=== PATIENT | male | born 1955 | race Two or more races ===

== ENCOUNTER 2020-05-03 05:11 | Day surgery (SDC) | payer MEDICARE ==
--- NOTE | 2020-05-02 14:29 | Pre-op HX & Phy Repo 2 SIG ---
DATE OF ADMISSION: 05/03/2020 DATE OF SURGERY: 05/03/2020. PREOPERATIVE DIAGNOSIS: Retinal detachment, right eye. BRIEF NOTE: This is first [facility] admission for the patient who is a very nice 64-year-old gentleman who was found to have superior retinal detachment in the right eye. His vision had progressively blurred for a couple of weeks and on examination was found to have macula off detachment. PAST MEDICAL HISTORY: Remarkable for elevated cholesterol and blood pressure. He is maintained on atorvastatin, lisinopril, and allopurinol. OCULAR HISTORY: Remarkable for cataract surgery done in either eye in 2018 followed by capsulotomies. ALLERGIES: He has no known allergies. PHYSICAL EXAMINATION: Best vision was 22/100 in the right eye and 20/25 in the left. Confrontation schulz showed inferior field loss on the right eye with extension through the macular center. The anterior segment showed posterior chamber lenses in reasonable position with open capsulotomies. Fundus examination showed bullous retinal detachment in the right eye extending from the 9 o'clock position to the 2:30 position. The bullous detachment extended down through the macula. The macula was . What appeared to be two small horseshoe tears were seen within the folds of retina superiorly. The left fundus was benign. General physical examination will be done by Dr. Kaufman. ASSESSMENT: Bullous retinal detachment, right eye. PLAN: The plan is to perform a pars plana vitrectomy with endo drainage, endolaser, and gas fluid exchange on the right eye. The risks and benefits of surgery have been gone over with the patient including the potential for infection, recurrent detachment, PVR formation, hemorrhage, and remote possibility of loss of the eye. The risk of anesthesia was discussed. The patient understands and consents to the surgery, which will be performed tomorrow morning. Satnam Lucero M.D. DR: Nydia JOB#: [id number] CC:
[~2020-05-03] VITALS: Ht 170.2 cm; Wt 81.6 kg
[2020-05-03] VITALS (11 sets, daily range): BP systolic 101–160; BP diastolic 45–94
[~2020-05-03 05:11] MED LIST: ALLOPURINOL100 M1 ORAL; ASPIRIN81 MG ORAL; ATORVASTATIN CA80 MG ORAL; FOLIC ACID1 MG ORAL; LISINOPRIL10 MG ORAL; Vit B12 PO
[2020-05-03] MEDS: Phenylephrine 2.5% Op 2ml Soln RIGHT EYE SCH ×3 (05:37→05:58)
[2020-05-03] MEDS: Flurbiprofen 0.03% Opth Sol 2.5ml RIGHT EYE SCH ×3 (05:37→05:58)
[2020-05-03] MEDS: Vigamox Opth Soln 3ml RIGHT EYE SCH ×3 (05:38→05:58)
[2020-05-03] MEDS ORDERED: prednisoLONE acetate 1% Opth Susp 1ml RIGHT EYE ONE (06:00)
[2020-05-03 06:05] LABS: BASOPHILS % (AUTO) 1.6 % (0.0-2.0); EOSINOPHILS % (AUTO) 4.9 % (0.0-3.0); HEMATOCRIT 39.2 % (42.0-52.0); HEMOGLOBIN 12.9 G/DL (14.2-18.0); MEAN CORPUSCULAR VOLUME 95 FL (80-99); MONOCYTES % (AUTO) 7.5 % (1.0-10.0); PLATELET COUNT 210 K/UL (150-450); RED BLOOD COUNT 4.11 M/UL (4.70-6.10); RED CELL DISTRIBUTION WIDTH 12.9 % (11.6-14.8); WHITE BLOOD COUNT 9.3 K/UL (4.8-10.8)
[2020-05-03 06:28] LABS: ANION GAP 7 mmol/L (5-15); BLOOD UREA NITROGEN 6 mg/dL (7-18); CALCIUM 8.9 MG/DL (8.5-10.1); CARBON DIOXIDE 31 MMOL/L (21-32); CHLORIDE 105 MMOL/L (98-107); CREATININE 0.8 MG/DL (0.55-1.30); POTASSIUM 3.2 MMOL/L (3.5-5.1); SODIUM 143 MMOL/L (136-145)
[2020-05-03] MEDS: Cyclopentolate 2% Opth Sol RIGHT EYE SCH ×3 (06:58→07:07)
[2020-05-03] MEDS ORDERED: Midazolam 2mg/2ml Inj ONE (07:06)
[2020-05-03] MEDS ORDERED: fentaNYL 100 mcg/2 mL IV ONE ×2 (07:06→08:02)
[2020-05-03] MEDS ORDERED: Lidocaine 1% MPF 10mg/ml 5ml ONE (07:10)
[2020-05-03] MEDS ORDERED: Kenalog-10 5ml Inj ONE (07:13)
[2020-05-03] MEDS ORDERED: EPINEPHrine 1mg/1ml Amp ONE (07:13)
[2020-05-03] MEDS ORDERED: prednisoLONE acetate 1% Opth Susp 1ml ONE (07:13)
[2020-05-03] MEDS ORDERED: Kenalog-40 1ml Vial ONE (07:13)
[2020-05-03] MEDS ORDERED: Lidocaine 2% MPF 5ml Vial INJ ONE (07:13)
[2020-05-03] MEDS ORDERED: BSS 15ml BTL ONE (07:14)
[2020-05-03] MEDS ORDERED: Povidone-Iodine 5% opth solution ONE (07:14)
[2020-05-03] MEDS ORDERED: Maxitrol Opth Oint 3.5gm ONE (07:14)
[2020-05-03] MEDS ORDERED: Tetracaine 0.5% Opth 4ml Soln ONE (07:14)
[2020-05-03] MEDS ORDERED: Triamcinolone 40mg/ml PF Vial ONE (07:14)
[2020-05-03] MEDS ORDERED: BSS 500ml btl ONE (07:14)
[2020-05-03] MEDS ORDERED: Bupivacaine 0.75% 30ml vial INJ ONE (07:14)
[2020-05-03] MEDS ORDERED: Sodium Hyaluronate 10 mg/ml 0.85ml ONE (07:15)
[2020-05-03] MEDS ORDERED: NS Irrig 1000ml ONE (07:30)
[2020-05-03] MEDS ORDERED: Sterile Water Irrig 1000ml IRRIG ONE (07:30)
[2020-05-03] MEDS ORDERED: LR 1000ml ONE (07:30)
[2020-05-03] MEDS ORDERED: Indocyanine Green 25mg Inj INJ ONE (07:30)
[2020-05-03] MEDS ORDERED: Metoclopramide 10mg/2ml Inj ONE (07:30)
[2020-05-03] MEDS ORDERED: Succinylcholine 20mg/ml 10ml vial ONE (07:38)
[2020-05-03] MEDS ORDERED: fentaNYL 100 mcg/2 mL IV PRN (07:45)
[2020-05-03] MEDS ORDERED: HYDROcodone/Acetamin 5/325 tab ORAL PRN (07:45)
--- NOTE | 2020-05-03 07:45 | Pre-Procedure Note/Attestation ---
Pre-Procedure Note/Attestation Complete Prior to Procedure Planned Procedure: right Procedure Narrative: PPV, endodrainage, endolaser, gas fluid exchange, possible scleral buckle RIGHT eye Indications for Procedure Pre-Operative Diagnosis: Retinal detachment, macula-off, right eye Attestation I attest that I discussed the nature of the procedure; its benefits; risks and complications; and alternatives (and the risks and benefits of such alternatives), prior to the procedure, with the patient (or the patient's legal tax representative). I attest that, if there was a reasonable possibility of needing a blood transfusion, the patient (or the patient's legal tax representative) was given the [place] [employer] standardized written summary, pursuant to the [place] Blood Safety Act ([place] Health and Safety Code # 1645, as amended). I attest that I re-evaluated the patient just prior to the surgery and that there has been no change in the patient's H&P, except as documented below: Satnam Lucero MD May 03, 2020 07:45
[2020-05-03] MEDS ORDERED: Phenylephrine 10mg/ml Vial ONE (08:10)
--- NOTE | 2020-05-03 08:43 | Anethesia Preoperative Eval ---
Anesthesia Pre-op PMH/ROS General Date of Evaluation: May 03, 2020 Time of Evaluation: 07:30 Anesthesiologist: gricel ASA Score: ASA 3 Mallampati Score Class I : Soft palate, uvula, fauces, pillars visible Class II: Soft palate, uvula, fauces visible Class III: Soft palate, base of uvula visible Class IV: Only hard plate visible Mallampati Classification: Class III Surgeon: antonio Diagnosis: Retinal Detachement Surgical Procedure: Right eye Pars Plana Vitrectomy Anesthesia History: none Social History: smoking Family History: no anesthesia problems Allergies: Coded Allergies: No Known Allergies (Unverified , 04/28/20) Medications: see eMAR Patient NPO?: Yes NPO Date: May 03, 2020 NPO Time: 00:01 Past Medical History Cardiovascular: Reports: HTN, CAD Pulmonary: Reports: COPD; Denies: asthma, JESIKA, other Neurologic/Psychiatric: Reports: CVA; Denies: depression/anxiety, TIA, other Endocrine: Denies: DM, hypothyroidism, steroids, other HEENT: Denies: cataract (L), cataract (R), glaucoma, [place] (L), [place] (R), other Hematology/Immune: Denies: anemia, DVT, bleeding disorder, other Musculoskeletal/Integumentary: Reports: other - gout; Denies: OA, RA, DJD, DDD, edema PSxH Narrative: cataract surgery Anesthesia Pre-op Phys. Exam Physician Exam Last Vital Signs Date Time Temp Pulse Resp B/P (MAP) Pulse Ox O2 Delivery O2 Flow Rate FiO2 05/03/20 05:44 97.7 97 18 133/80 98 Room Air Constitutional: NAD Neurologic: CN 2-12 intact Cardiovascular: RRR Respiratory: CTA Gastrointestinal: S/NT/ND Airway Exam Mallampati Classification 3 Mallampati Score: Class III MO: limited Neck: thick ROM: full Teeth: missing Dentures: no upper, no lower Anesthesia Pre-op A/P Labs Hematology Test 05/03/20 05:35 White Blood Count 9.3 K/UL (4.8-10.8) Red Blood Count 4.11 M/UL (4.70-6.10) L Hemoglobin 12.9 G/DL (14.2-18.0) L Hematocrit 39.2 % (42.0-52.0) L Mean Corpuscular Volume 95 FL (80-99) Mean Corpuscular Hemoglobin 31.5 PG (27.0-31.0) H Mean Corpuscular Hemoglobin Concent 33.0 G/DL (32.0-36.0) Red Cell Distribution Width 12.9 % (11.6-14.8) Platelet Count 210 K/UL (150-450) Mean Platelet Volume 7.9 FL (6.5-10.1) Neutrophils (%) (Auto) 73.0 % (45.0-75.0) Lymphocytes (%) (Auto) 13.0 % (20.0-45.0) L Monocytes (%) (Auto) 7.5 % (1.0-10.0) Eosinophils (%) (Auto) 4.9 % (0.0-3.0) H Basophils (%) (Auto) 1.6 % (0.0-2.0) Coagulation Test 05/03/20 05:35 Prothrombin Time 10.7 SEC (9.30-11.50) Prothromb Time International Ratio 1.0 (0.9-1.1) Activated Partial Thromboplast Time 27 SEC (23-33) Chemistry Test 05/03/20 05:35 Sodium Level 143 MMOL/L (136-145) Potassium Level 3.2 MMOL/L (3.5-5.1) L Chloride Level 105 MMOL/L (98-107) Carbon Dioxide Level 31 MMOL/L (21-32) Anion Gap 7 mmol/L (5-15) Blood Urea Nitrogen 6 mg/dL (7-18) L Creatinine 0.8 MG/DL (0.55-1.30) Estimat Glomerular Filtration Rate > 60 mL/min (>60) Glucose Level 95 MG/DL (74-106) Calcium Level 8.9 MG/DL (8.5-10.1) Studies Pre-op Studies: EKG - sr Risk Assessment & Plan Assessment: covid neg Plan: GA Status Change Before Surgery: No Pre-Antibiotics Drug: none Yolie De La Rosa CRNA May 03, 2020 08:43
--- NOTE | 2020-05-03 09:06 | Immediate Post-Op Evaluation ---
Immediate Post-Op Evalulation Immediate Post-Op Evalulation Procedure: right eye pars planta vitrectomy Date of Evaluation: May 03, 2020 Time of Evaluation: 09:05 IV Fluids: 750 Blood Pressure Systolic: 150 Blood Pressure Diastolic: 90 Pulse Rate: 97 Respiratory Rate: 14 O2 Sat by Pulse Oximetry: 99 Temperature (Fahrenheit): 97.3 Nausea: No Vomiting: No Complications none Patient Status: awake, reacts, patent Hydration Status: adequate Drug: none TwanriYolie landeros CRNA May 03, 2020 09:06
--- NOTE | 2020-05-03 09:11 | Brief Operative Note ---
Immediate Post Operative Note Operative Note Chief Complaint: Shadow in vision Right eye Pre-op Diagnosis: Retinal detachment, macula-off, right eye Procedure: PPV, Endodrainage, Endolaser 1065 spots, Gas-Fluid exchange SF-6 Right eye Post-op Diagnosis: same as pre-op Surgeon: Nic Anesthesiologist: Yolie Lao CRNA Anesthesia: general Specimen: none Complications: none Condition: stable Fluids: Per Anesthesia Estimated Blood Loss: none Drains: none Implant(s) used?: No Satnam Lucero MD May 03, 2020 09:11
[2020-05-03] MEDS ORDERED: Labetalol 5mg/ml 20ml vial IV PRN (09:15)
--- NOTE | 2020-05-03 09:44 | Operative Note - Dictated ---
DATE OF OPERATION: 05/03/2020 PREOPERATIVE DIAGNOSIS: Bullous retinal detachment, right eye. POSTOPERATIVE DIAGNOSIS: Bullous retinal detachment, right eye. PROCEDURES: 1. Pars plana vitrectomy. 2. Endo drainage. 3. Endolaser. 4. Gas fluid exchange, right eye. SURGEON: Satnam Lucero MD ORGAN PIPE FINISHER: None. ANESTHESIA: LMA general. ANESTHESIOLOGIST: Yolie De La Rosa CRNA. JUSTIFICATION FOR SURGERY: This 64-year-old gentleman noted a progressive shadow in the vision in his right eye and was found to have a superior detachment. BRIEF NOTE: Patient was brought to the operative room, placed on OR table in supine position. After a time-out was reviewed and agreed upon by the staff, general LMA anesthesia was induced. A retrobulbar and minimal Van Lint blocks were then given. The patient was then prepped and draped in the normal manner. A lid speculum inserted into the right eye. Using a 23-gauge trocar system, cannulas were placed in all except infranasal quadrant. Infusion secured inferotemporally. Vitrectomy was begun posterior to the lens implant. Vitreous adhesions removed from the posterior capsule. A central core vitrectomy was then completed followed by peripheral vitrectomy leaving a small vitreous skirt. Scleral depression revealed a superior detachment with a large horseshoe tear at the 11:30 position. Using Endo cautery, this was marked as well as an area just superior and nasal to the optic nerve for endo drainage. An air fluid exchange was then performed with drainage made through the posterior retinotomy site. The retina was noted to flatten nicely without fold. The lighted laser probe was then used to surround the retinal tear rather with at least three rows of laser. The retinotomy was similarly surrounded. Scleral depression again revealed no additional pathology. A gas gas exchange was then performed using a 24% mixture of SF6. At this juncture, the instruments were removed and the sclerotomy was closed with 8-0 Vicryl suture. The eye was left normotensive. Subconjunctival Decadron and gentamicin were then injected inferiorly, Maxitrol ointment, atropine drops, prednisolone drops, and moxifloxacin drops were instilled. The eye was patched and shielded and the patient was taken to recovery in excellent condition. There were no complications. Satnam Lucero M.D. DR: DANIEL JOB#: [id number] CC: Satnam Lucero M.D.; Fax#: [phone]
--- NOTE | 2020-05-03 10:06 | 48 Hour Post Anesthesia Eval ---
Post Anesthesia Evaluation Procedure: right eye pars planta vitrectomy Date of Evaluation: May 03, 2020 Time of Evaluation: 10:05 Blood Pressure Systolic: 121 0: 70 Pulse Rate: 75 Respiratory Rate: 14 O2 Sat by Pulse Oximetry: 98 Airway: patent Nausea: No Vomiting: No Hydration Status: adequate Cardiopulmonary Status: stable Mental Status/LOC: patient returned to baseline Follow-up Care/Observations: na Post-Anesthesia Complications: none Follow-up care needed: N/A Yolie De La Rosa CRNA May 03, 2020 10:06
== END 2020-05-03 10:45 | disposition home or self-care (01) ==
LOC: SUR 05:11
DX: H33.21 Serous retinal detachment, right eye (principal); E78.00 Pure hypercholesterolemia, unspecified; I10 Essential (primary) hypertension; Z79.899 Other long term (current) drug therapy; I11.9 Hypertensive heart disease without heart failure; I25.10 Atherosclerotic heart disease of native coronary artery without angina pectoris; J44.9 Chronic obstructive pulmonary disease, unspecified; Z86.73 Personal history of transient ischemic attack (TIA), and cerebral infarction without residual deficits
CPT/HCPCS: 36415; 67039; 80048; 85025; 85610; 85730; 94003; J0171; J0330; J1100; J2250; J2370; J2405; J2704; J2765; J3010; J3301; J3470; J3490; J7120; U0004; 94150; J3300